=== PATIENT | female | born 1950 | race Hispanic/Latino ===

== ENCOUNTER 2018-01-22 12:18 | Emergency (ER) | payer MEDICARE, MEDICAID ==
[2018-01-22 12:20] VITALS: BMI 25.2
[2018-01-22 12:28] VITALS: RESP 18; TEMP 97.8
--- NOTE | 2018-01-22 13:58 | CT ---
PROCEDURE: CT HEAD WITHOUT CONTRAST. HISTORY: head injury COMPARISON: 12/20/2016 TECHNIQUE: Axial computed tomography images were obtained through the head/brain without intravenous contrast. Radiation dose: Total exam DLP = 852.60 mGy-cm. This CT exam was performed using one or more of the following dose reduction techniques: Automated exposure control, adjustment of the mA and/or kV according to patient size, and/or use of iterative reconstruction technique. FINDINGS: HEMORRHAGE: No intracranial hemorrhage. BRAIN: No mass effect or edema. No atrophy or chronic microvascular ischemic changes. VENTRICLES: Unremarkable. No hydrocephalus. CALVARIUM: Unremarkable. PARANASAL SINUSES: Unremarkable as visualized. No significant inflammatory changes. MASTOID AIR CELLS: Unremarkable as visualized. No inflammatory changes. OTHER FINDINGS: None. IMPRESSION: No acute intracranial abnormalities. No significant findings to account for the clinical presentation.
--- NOTE | 2018-01-22 14:02 | CT ---
PROCEDURE: CT MAXILLOFACIAL BONES WITHOUT CONTRAST HISTORY: facial pain s/p trauma COMPARISON: None TECHNIQUE: Contiguous axial CT images of the maxillofacial bones were obtained. Coronal and sagittal reformats were generated. Radiation dose: Total exam DLP = 850.48 mGy-cm. This CT exam was performed using one or more of the following dose reduction techniques: Automated exposure control, adjustment of the mA and/or kV according to patient size, and/or use of iterative reconstruction technique. FINDINGS: NASAL BONES: Unremarkable. ORBITS: Unremarkable. PARANASAL SINUSES/ MASTOIDS: Clear. MAXILLA: Unremarkable. MANDIBLE/ TEMPOROMANDIBULAR JOINTS: Unremarkable. SKULL BASE: Unremarkable. TEMPORAL BONES: Middle ears and mastoid grossly unremarkable. OTHER FINDINGS: Soft tissue swelling above the lip and to the right of the midline. IMPRESSION: Facial soft tissue swelling, otherwise Unremarkable non contrast enhanced CT of the maxillofacial bones.
--- NOTE | 2018-01-22 14:02 | RAD ---
PROCEDURE: Right Hand Radiographs. HISTORY: hand pain COMPARISON: None. FINDINGS: BONES: Normal. No fracture. JOINTS: Normal. No osteoarthritic changes. SOFT TISSUES: Normal. OTHER FINDINGS: None. IMPRESSION: No acute findings related to/accounting for the clinical presentation.
--- NOTE | 2018-01-22 14:13 | ED PDOC ---
Arrival/HPI - General Chief Complaint: Trauma Time Seen by Provider: 01/22/18 12:45 Historian: Patient - History of Present Illness Narrative History of Present Illness (Text): 01/22/18 14:02 67yo female with PMhx of hypertension who present with facial pain and right hand pain s/p trauma this morning. states she tripped over uneven side walk, while taking a walk this morning. Notes that she hit the right side of her face on the floor and injured her hand. She denies hitting her head. Denies LOC, nausea, focal weakness, back pain, any other complaint. 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 - Renal Hx Renal Disorder: No - Endocrine/Metabolic Hx Endocrine Disorders: No - Hematological/Oncological Hx Blood Transfusions: No - Integumentary Hx Dermatological Disorder: No - Musculoskeletal/Rheumatological Hx Musculoskeletal Disorders: Yes - Gastrointestinal Hx Gastrointestinal Disorders: No - Genitourinary/Gynecological Hx Genitourinary Disorders: No - Psychiatric Hx Emotional Abuse: No Hx Physical Abuse: No Hx Substance Use: No - Surgical History Hx Cataract Extraction: Yes Hx Gastric Bypass Surgery: Yes (Lap band) Hx Orthopedic Surgery: Yes (L ankle surgery) Hx Tubal Ligation: Yes Other/Comment: Neck surgery - Anesthesia Hx Anesthesia: Yes Hx Anesthesia Reactions: No Hx Malignant Hyperthermia: No - Suicidal Assessment Feels Threatened In Home Enviroment: No Family/Social History - Physician Review Nursing Documentation Reviewed: Yes Family/Social History: Unknown Family HX Smoking Status: Former Smoker Hx Alcohol Use: No Hx Substance Use: No Hx Substance Use Treatment: No Allergies/Home Meds Allergies/Adverse Reactions: Allergies No Known Allergies Allergy (Verified 01/22/18 12:28) Home Medications: Home Meds Medication Instructions Recorded Confirmed Atorvastatin Calcium [Lipitor] 20 mg PO DAILY 07/02/13 01/22/18 Review of Systems - Physician Review All systems were reviewed & negative as marked: Yes - Review of Systems Constitutional: Normal Eyes: Normal ENT: Normal Respiratory: Normal Cardiovascular: Normal Gastrointestinal: Normal Genitourinary Female: Normal Musculoskeletal: Arthralgias (Right hand and facial pain) Skin: Normal Neurological: Normal Endocrine: Normal Hemo/Lymphatic: Normal Psychiatric: Normal Physical Exam Vital Signs Reviewed: Yes Vital Signs Temp Pulse Resp BP Pulse Ox 01/22/18 14:40 64 18 149/83 99 01/22/18 12:24 97.8 F 72 18 168/64 H 100 Temperature: Afebrile Blood Pressure: Normal Pulse: Regular Respiratory Rate: Normal Appearance: Positive for: Well-Appearing, Non-Toxic, Comfortable Pain Distress: None Mental Status: Positive for: Alert and Oriented X 3 - Systems Exam Head: Present: Atraumatic, Normocephalic Pupils: Present: PERRL Extroacular Muscles: Present: EOMI, Other (Ecchymosis with mild over laying tenderness over right infra orbital area) Conjunctiva: Present: Normal Mouth: Present: Moist Mucous Membranes, Other (Superfical abrasion over the right sided rafat oral area. No active bleeding) Neck: Present: Normal Range of Motion Respiratory/Chest: Present: Clear to Auscultation, Good Air Exchange. No: Respiratory Distress, Accessory Muscle Use Cardiovascular: Present: Regular Rate and Rhythm, Normal S1, S2. No: Murmurs Abdomen: Present: Normal Bowel Sounds. No: Tenderness, Distention, Peritoneal Signs Back: Present: Normal Inspection Upper Extremity: Present: Normal ROM, NORMAL PULSES, Tenderness (Right hand), Neurovascularly Intact. No: Cyanosis, Edema, Swelling, Erythema Lower Extremity: Present: Normal Inspection. No: Edema Neurological: Present: GCS=15, CN II-XII Intact, Speech Normal Skin: Present: Warm, Dry, Normal Color. No: Rashes Psychiatric: Present: Alert, Oriented x 3, Normal Insight, Normal Concentration Medical Decision Making ED Course and Treatment: 01/22/18 19:58 PT was neurological intact and ambulatory in ED. Head CT/ Maxillofacial CT - Negative Right hand xray - Negative Abrasion cleaned with betadine and bacitracine applied. Marko wrap applied to hand. Result was DW the pt and she was DC home with ibuprofen. Referred to her PMD. Advised to apply ice to area. - RAD Interpretation Radiology Orders: 01/22/18 12:46 MAXILLOFACIAL W/O CONTRAST [CT] Stat 01/22/18 12:48 HEAD W/O CONTRAST [CT] Stat 01/22/18 12:49 HAND RIGHT 3 VIEWS [RAD] Stat - Medication Orders Current Medication Orders: Discontinued Medications Acetaminophen (Tylenol 325mg Tab) 650 mg PO STAT STA Stop: 01/22/18 12:52 Last Admin: 01/22/18 12:57 Dose: 650 mg MAR Pain/Vitals Document 01/22/18 12:57 GMD (Rec: 01/22/18 12:57 GMD [id number]) Presence of Pain Presence of Pain Yes Location Left, Right or Bilateral Right Pain Location Body Site Wrist Disposition/Present on Arrival - Present on Arrival Any Indicators Present on Arrival: No History of DVT/PE: No History of Uncontrolled Diabetes: No Urinary Catheter: No History of Decub. Ulcer: No History Surgical Site Infection Following: None - Disposition Have Diagnosis and Disposition been Completed?: Yes Diagnosis: Hand sprain, Facial contusion, Abrasion Disposition: HOME/ ROUTINE Disposition Time: 14:35 Patient Plan: Discharge Condition: STABLE Discharge Instructions (ExitCare): Contusion (DC), Hand Pain Additional Instructions: Follow up with your doctor/orthopedist Return to ED for any new or worsening symptoms Prescriptions: Ibuprofen [Motrin Tab] 600 mg PO Q6 #20 tab Referrals: Gina Carter MD [Staff Provider] - Follow up with primary Forms: [employer] (Paraguayan)
[2018-01-22 14:41] VITALS: BP 149/83; PULSE 64; O2SAT 99
== END 2018-01-22 14:45 | disposition home or self-care (01) ==
LOC: ED 12:18
DX: S00.83XA Contusion of other part of head, initial encounter (principal); S63.91XA Sprain of unspecified part of right wrist and hand, initial encounter; W01.0XXA Fall on same level from slipping, tripping and stumbling without subsequent striking against object, initial encounter; Y92.480 Sidewalk as the place of occurrence of the external cause

== ENCOUNTER 2018-11-06 15:14 | Observation (INO) | payer MEDICAID, MEDICARE ==
[2018-11-06 15:21] VITALS: BMI 25.8
[2018-11-06] MEDS ORDERED: Sodium Chloride 0.9% 1,000 ML IV STA (15:59)
--- NOTE | 2018-11-06 16:07 | ED PDOC ---
Arrival/HPI - General Chief Complaint: GI Problem Time Seen by Provider: 11/06/18 15:53 Historian: Patient - History of Present Illness Narrative History of Present Illness (Text): 11/06/18 16:04 68 year old female, whose past medical history includes hyperlipidemia and UTI's, who presents to the emergency department complaining of body aches, chills, and nausea x 3 days. Patient notes associated headaches. Patient denies any fever, chest pain, shortness of breath, diarrhea, urinary symptoms, back pain, neck pain, dizziness, or any other complaints. 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 - Renal Hx Renal Disorder: No - Endocrine/Metabolic Hx Endocrine Disorders: No - Hematological/Oncological Hx Blood Transfusions: No - Integumentary Hx Dermatological Disorder: No - Musculoskeletal/Rheumatological Hx Musculoskeletal Disorders: Yes - Gastrointestinal Hx Gastrointestinal Disorders: No - Genitourinary/Gynecological Hx Genitourinary Disorders: No - Psychiatric Hx Emotional Abuse: No Hx Physical Abuse: No Hx Substance Use: No - Surgical History Hx Cataract Extraction: Yes Hx Gastric Bypass Surgery: Yes (Lap band) Hx Orthopedic Surgery: Yes (L ankle surgery) Hx Tubal Ligation: Yes Other/Comment: Neck surgery - Anesthesia Hx Anesthesia: Yes Hx Anesthesia Reactions: No Hx Malignant Hyperthermia: No - Suicidal Assessment Feels Threatened In Home Enviroment: No Family/Social History - Physician Review Nursing Documentation Reviewed: Yes Family/Social History: Unknown Family HX Smoking Status: Former Smoker Hx Alcohol Use: No Hx Substance Use: No Hx Substance Use Treatment: No Allergies/Home Meds Allergies/Adverse Reactions: Allergies No Known Allergies Allergy (Verified 01/22/18 12:28) Home Medications: Home Meds Medication Instructions Recorded Confirmed RX: Atorvastatin Calcium [Lipitor] 20 mg PO DAILY 07/02/13 01/22/18 Review of Systems - Physician Review All systems were reviewed & negative as marked: Yes - Review of Systems Constitutional: Normal Eyes: Normal ENT: Normal Respiratory: Normal. absent: SOB, Cough Cardiovascular: Normal. absent: Chest Pain Gastrointestinal: Nausea, Vomiting. absent: Abdominal Pain Genitourinary Female: Normal. absent: Frequency, Hematuria Musculoskeletal: Other (body aches). absent: Back Pain, Neck Pain Skin: Normal. absent: Rash Neurological: Headache Endocrine: Normal Hemo/Lymphatic: Normal Psychiatric: Normal Physical Exam Vital Signs Reviewed: Yes Vital Signs Temp Pulse Resp BP Pulse Ox 11/06/18 15:20 99.3 F 87 18 128/71 99 Temperature: Afebrile Blood Pressure: Normal Pulse: Regular Respiratory Rate: Normal Appearance: Positive for: Well-Appearing, Non-Toxic, Comfortable Pain Distress: None Mental Status: Positive for: Alert and Oriented X 3 - Systems Exam Head: Present: Atraumatic, Normocephalic Pupils: Present: PERRL Extroacular Muscles: Present: EOMI Conjunctiva: Present: Normal Mouth: Present: Moist Mucous Membranes Neck: Present: Normal Range of Motion Respiratory/Chest: Present: Clear to Auscultation, Good Air Exchange. No: Respiratory Distress, Accessory Muscle Use Cardiovascular: Present: Regular Rate and Rhythm, Normal S1, S2. No: Murmurs Abdomen: No: Tenderness, Distention, Peritoneal Signs Back: Present: Normal Inspection Upper Extremity: Present: Normal Inspection. No: Cyanosis, Edema Lower Extremity: Present: Normal Inspection. No: Edema Neurological: Present: GCS=15, CN II-XII Intact, Speech Normal Skin: Present: Warm, Dry, Normal Color. No: Rashes Psychiatric: Present: Alert, Oriented x 3, Normal Insight, Anxious Medical Decision Making ED Course and Treatment: 11/06/18 16:08 Impression: 68 year old female presents to the Emergency department complaining of body aches, chills, and nausea x 3 days. ro abdominal infeluna, pneumonia uti Plan: -- Labs -- Tylenol -- Zofran -- Sodium Chloride -- Rapid Flu -- UA -- Reassess and disposition Progress Notes: 11/06/18 16:27 ekg nsr [address] tave changes nomral interval.s 11/06/18 19:12 labs show elevated lfts ?choledolithiasis. case discussed with dr carey, accepts. seen by [facility]. - Medication Orders Current Medication Orders: Sodium Chloride (Sodium Chloride 0.9%) 1,000 mls @ 1,000 mls/hr IV .Q1H STA Stop: 11/06/18 16:58 Discontinued Medications Acetaminophen (Tylenol 325mg Tab) 975 mg PO STAT STA Stop: 11/06/18 16:00 Ondansetron HCl (Zofran Inj) 4 mg IVP STAT STA Stop: 11/06/18 16:00 - Scribe Statement The provider has reviewed the documentation as recorded by the Scribtiffany Junior All medical record entries made by the Edelmiraibtiffany were at my direction and personally dictated by me. I have reviewed the chart and agree that the record accurately reflects my personal performance of the history, physical exam, medical decision making, and the department course for this patient. I have also personally directed, reviewed, and agree with the discharge instructions and disposition. Disposition/Present on Arrival - Present on Arrival Any Indicators Present on Arrival: No History of DVT/PE: No History of Uncontrolled Diabetes: No Urinary Catheter: No History of Decub. Ulcer: No History Surgical Site Infection Following: None - Disposition Have Diagnosis and Disposition been Completed?: Yes Diagnosis: Choledocholithiasis, Abnormal LFTs Disposition: HOSPITALIZED Disposition Time: 18:30 Condition: STABLE
[2018-11-06 16:42] LABS: BASO # 0.01 K/mm3 (0.0-2.0); BASO % 0.1 % (0.0-3.0); EOS # 0.1 (0.0-0.7); EOS % 0.9 % (1.5-5.0); GRAN # 7.14 (1.4-6.5); GRAN % 95.2 % (50.0-68.0); HEMOGLOBIN 13.8 g/dL (12.0-16.0); LYMPH # 0.1 (1.2-3.4); LYMPH % 1.5 % (22.0-35.0); MEAN CELL VOLUME 91.9 fl (80.0-105.0); MEAN CORPUSCULAR HEMOGLOBIN 30.9 pg (25.0-35.0); MEAN CORPUSCULAR HGB CONC 33.6 g/dl (31.0-37.0); MEAN PLATELET VOLUME 9.9 fl (7.0-11.0); MONO # 0.2 (0.1-0.6); MONO % 2.3 % (1.0-6.0); PLATELET COUNT 162 10^3/uL (120.0-450.0); RBC 4.47 10^6/uL (3.5-6.1); RED CELL DISTRIBUTION WIDTH 14.4 % (11.5-14.5); WHITE BLOOD COUNT 7.5 10^3/uL (4.5-11.0)
[2018-11-06 16:51] LABS: ALB/GLOB RATIO 1.1 (1.1-1.8); ALBUMIN 3.5 g/dL (3.0-4.8); ALT/SGPT 283 U/L (7-56); AST/SGOT 309 U/L (14-36); BLOOD UREA NITROGEN 17 mg/dL (7-21); CALCIUM 8.7 mg/dL (8.4-10.5); GFR NON-AFRICAN AMERICAN > 60; INR 1.17; LIPASE 220 U/L (23-300); PARTIAL THROMBOPLASTIN TIME 26.7 Seconds (25.1-36.5); PROTHROMBIN TIME 13.4 SECONDS (9.4-12.5)
[2018-11-06 17:03] LABS: TROPONIN I < 0.01 ng/mL
[2018-11-06 17:12] LABS: BAND 3 % (0-2); EOSINOPHIL 3 % (0.0-3.0); LYMPHOCYTE 1 % (22.0-35.0); MONOCYTE 1 % (1.0-6.0); NEUTROPHIL 92 % (50.0-70.0); PLATELET ESTIMATE NORMAL (NORMAL)
--- NOTE | 2018-11-06 17:39 | US ---
Date of service: 11/06/2018 HISTORY: elevated lfts COMPARISON: 01/23/2017, abdominal ultrasound. 01/23/2017 CT abdomen and pelvis TECHNIQUE: Sonographic evaluation of the abdomen. FINDINGS: LIVER: Measures 14.0 cm. Hepatopedal blood flow. Fatty infiltration manifest ultrasonographically as increased echogenicity of the liver parenchyma. No mass. No intrahepatic bile duct dilatation. GALLBLADDER: Cholelithiasis. Negative study for gallbladder wall thickening, pericholecystic fluid, sonographic Chavez's sign. COMMON BILE DUCT: Measures 4.1 mm. No stones. No dilatation. PANCREAS: Unremarkable as visualized. No mass. No ductal dilatation. RIGHT KIDNEY: Measures 5 x 10.9cm. Normal echogenicity. No calculus, mass, or hydronephrosis. LEFT KIDNEY: Measures 4.5 x 9.1cm. Normal echogenicity. No calculus, mass, or hydronephrosis. SPLEEN: Normal in size and contour. No mass. AORTA: No aneurysmal dilatation. IVC: Unremarkable. OTHER FINDINGS: None. IMPRESSION: Cholelithiasis. No sonographic evidence of acute cholecystitis.
--- NOTE | 2018-11-06 18:50 | CP.PCM.CON ---
History of Present Illness - History of Present Illness History of Present Illness: Surgery Consult note- Dr. 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 Patient states she has been feeling run down and was not getting better so elected to come to the ER for further workup. States recent sick contact with family friend who had bacteremia in hospital last week. Denies recent foreign travel. Denies vomiting, abdominal pain, diarrhea, changes in urinary habits. During work up patient was found to have transaminitis and subsequently underwent abdominal US. Of note, patient was admitted 01/2017 with similar lab findings, and Ultrasound with no significant interval changes. PMH: Stated above PSH: c-spine surgery, b/l cataracts, ORIF of left ankle, tubal ligation, Lap Band surgery w/ 100lbs weight loss since surgery ALL: NKDA SocialHx: former smoker- quit 15 years ago, smoked 2ppd for > 40 years, social etoh, denies recreational drug use FH: non-contributory Review of Systems - Review of Systems All systems: reviewed and no additional remarkable complaints except - Constitutional Constitutional: As Per HPI Past Patient History - Infectious Disease Hx of Infectious Diseases: None - Tetanus Immunizations Tetanus Immunization: Unknown - Past Social History Smoking Status: Former Smoker - CARDIAC Hx Pacemaker: No Other/Comment: Carotid artery stenosis - PULMONARY Hx Respiratory Disorders: No - NEUROLOGICAL Hx Paralysis: No - HEENT Hx HEENT Problems: Yes 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 - RENAL Hx Chronic Kidney Disease: No - ENDOCRINE/METABOLIC Hx Endocrine Disorders: No - HEMATOLOGICAL/ONCOLOGICAL Hx Blood Transfusions: No - INTEGUMENTARY Hx Dermatological Problems: No - MUSCULOSKELETAL/RHEUMATOLOGICAL Hx Musculoskeletal Disorders: Yes - GASTROINTESTINAL Hx Gastrointestinal Disorders: No - GENITOURINARY/GYNECOLOGICAL Hx Genitourinary Disorders: No - PSYCHIATRIC Hx Emotional Abuse: No Hx Physical Abuse: No Hx Substance Use: No - SURGICAL HISTORY Hx Cataract Extraction: Yes Hx Gastric Bypass Surgery: Yes (Lap band) Hx Orthopedic Surgery: Yes (L ankle surgery) Hx Tubal Ligation: Yes Other/Comment: Neck surgery - ANESTHESIA Hx Anesthesia: Yes Hx Anesthesia Reactions: No Hx Malignant Hyperthermia: No Meds Allergies/Adverse Reactions: Allergies Allergy/AdvReac Type Severity Reaction Status Date / Time No Known Allergies Allergy Verified 01/22/18 12:28 Physical Exam - Constitutional Appears: Non-toxic, No Acute Distress - Head Exam Head Exam: ATRAUMATIC - Eye Exam Eye Exam: EOMI. absent: Scleral icterus - ENT Exam ENT Exam: Mucous Membranes Moist - Respiratory Exam Respiratory Exam: NORMAL BREATHING PATTERN. absent: Accessory Muscle Use, Respiratory Distress - Cardiovascular Exam Cardiovascular Exam: REGULAR RHYTHM, +S1, +S2. absent: Bradycardia, Tachycardia - GI/Abdominal Exam GI & Abdominal Exam: Soft. absent: Diminished Bowel Sounds, Distended, Firm, Guarding, Hernia, Mass, Rebound, Rigid, Tenderness - Neurological Exam Neurological exam: Alert, Oriented x3 - Psychiatric Exam Psychiatric exam: Normal Affect - Skin Skin Exam: Intact, Warm Results - Vital Signs Recent Vital Signs: Last Vital Signs Temp 99.3 F 11/06/18 15:20 Pulse 81 11/06/18 17:14 Resp 18 11/06/18 17:14 BP 125/70 11/06/18 17:14 Pulse Ox 99 11/06/18 17:14 - Labs Result Diagrams: 11/06/18 16:30 11/06/18 16:30 Labs: Laboratory Results - last 24 hr 11/06/18 11/06/18 11/06/18 16:30 16:30 16:30 WBC 7.5 RBC 4.47 Hgb 13.8 Hct 41.1 MCV 91.9 MCH 30.9 MCHC 33.6 RDW 14.4 Plt Count 162 MPV 9.9 Gran % 95.2 H Lymph % (Auto) 1.5 L Trimble % (Auto) 2.3 Eos % (Auto) 0.9 L Baso % (Auto) 0.1 Gran # 7.14 H Lymph # (Auto) 0.1 L Trimble # (Auto) 0.2 Eos # (Auto) 0.1 Baso # (Auto) 0.01 Neutrophils % (Manual) 92 H Band Neutrophils % 3 H Lymphocytes % (Manual) 1 L Monocytes % (Manual) 1 Eosinophils % (Manual) 3 Platelet Evaluation Normal PT 13.4 H INR 1.17 APTT 26.7 Sodium 136 Potassium 4.0 Chloride 106 Carbon Dioxide 26 Anion Gap 8 L BUN 17 Creatinine 0.8 Est GFR ( Amer) > 60 Est GFR (Non-Af Amer) > 60 Random Glucose 106 Calcium 8.7 Total Bilirubin 1.9 H Direct Bilirubin AST 309 H ALT 283 H Alkaline Phosphatase 193 H Lactate Dehydrogenase 988 H Total Creatine Kinase 75 Troponin I < 0.01 D Total Protein 6.6 Albumin 3.5 Globulin 3.2 Albumin/Globulin Ratio 1.1 Lipase 220 11/06/18 17:00 WBC RBC Hgb Hct MCV MCH MCHC RDW Plt Count MPV Gran % Lymph % (Auto) Trimble % (Auto) Eos % (Auto) Baso % (Auto) Gran # Lymph # (Auto) Trimble # (Auto) Eos # (Auto) Baso # (Auto) Neutrophils % (Manual) Band Neutrophils % Lymphocytes % (Manual) Monocytes % (Manual) Eosinophils % (Manual) Platelet Evaluation PT INR APTT Sodium Potassium Chloride Carbon Dioxide Anion Gap BUN Creatinine Est GFR ( Amer) Est GFR (Non-Af Amer) Random Glucose Calcium Total Bilirubin Direct Bilirubin 1.4 H AST ALT Alkaline Phosphatase Lactate Dehydrogenase Total Creatine Kinase Troponin I Total Protein Albumin Globulin Albumin/Globulin Ratio Lipase Assessment & Plan - Assessment and Plan (Free Text) Assessment: 68F w/ transaminitis r/o cholecystitis vs choledocolithiasis Plan: similar interval imaging and lab findings from 01/2017, asymptomatic chol elithiasis - NPO at MI - pain control PRN - recommend MRCP - repeat labs in AM - serial abd exams - no acute surgical intervention at this time - further [facility]
[2018-11-06] MEDS ORDERED: Morphine 2 mg/ml ISec IVP PRN (20:07)
[2018-11-06] MEDS ORDERED: Sodium Chloride 0.45% 1,000 ML IV SCH (20:15)
[2018-11-06 21:38] LABS: URINE BILIRUBIN LARGE (NEGATIVE); URINE BLOOD NEGATIVE (NEGATIVE); URINE GLUCOSE (UA) NEGATIVE (NEGATIVE); URINE LEUKOCYTE ESTERASE TRACE Leu/uL (NEGATIVE); URINE PROTEIN 30 mg/dL (<30 mg/dL); URINE UROBILINOGEN >=8.0 E.U./dL (<1 E.U./dL)
[2018-11-06 21:39] LABS: URINE APPEARANCE SLIGHT-CLOUDY (CLEAR); URINE COLOR DARK YELLOW (YELLOW)
[2018-11-06 21:56] LABS: URINE RBC NEGATIVE /hpf (0-2)
[2018-11-06 21:57] LABS: URINE BACTERIA TRACE /hpf; URINE HYALINE CAST 0 - 2 /hpf
[2018-11-06 23:03] VITALS: O2SAT 98
--- NOTE | 2018-11-07 03:03 | HP ---
DATE OF EXAM: 11/06/2018 HISTORY OF PRESENT ILLNESS: I have known Iris for years. She is now coming to the emergency room, not feeling well. She presents with body aches, chills and nausea for 3 days. She is a 68-year-old white female who I have known for many years with past medical history of high cholesterol, UTI, and optic neuritis, who presents with headaches, abdominal pains on and off, nausea x3 days. She has carotid artery stenosis. 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 She has autoimmune optic neuritis. She takes prednisone every day for that. She had cataract surgery, lap band surgery where she lost 100 pounds, left ankle orthopedic surgery, tubal ligation, neck surgery cervical spine. FAMILY HISTORY: Unknown family history. SOCIAL HISTORY: Former smoker. No alcohol. No drugs. ALLERGIES: NO KNOWN DRUG ALLERGIES. MEDICATIONS: She is on prednisone and Lipitor. REVIEW OF SYSTEMS: No acute vision or hearing changes. No respiratory changes. No shortness of breath or cough. No chest pain or palpitations. She is nauseous. She is vomiting. Very little abdominal pain, some right upper quadrant ache but nothing severe. No problems urinating. Generalized body aches. No leg issues. Skin, what she knows, is intact. No rashes. She did have a headache. Not anxious, not nervous. PHYSICAL EXAMINATION: VITAL SIGNS: She has a 99.3 temperature, 87 pulse, 18 respiratory rate, 128/71 blood pressure, 99% O2 sat on room air. GENERAL: At this time, she is comfortable in bed talking to me, well appearing, nontoxic, alert and oriented x3. HEENT: Head is atraumatic, normocephalic. Extraocular muscles intact. Pupils react to light and accommodation. Throat is moist. NECK: Supple. HEART: Regular rate. Normal S1, S2. LUNGS: Decreased breath sounds, clear to auscultation bilaterally. ABDOMEN: Soft, maybe mild right upper quadrant discomfort, but no tenderness. No guarding, no rebound, no CVA tenderness. EXTREMITIES: No edema bilaterally. She moves all four extremities well. LYMPHS: Thyroid midline. No palpable lymphadenopathy. NEUROLOGIC: Alert and oriented x3. LABORATORY DATA: She had multiple labs done and tests done. She has a negative flu. Sodium 136, potassium 4, BUN 70, creatinine 0.8, GFR greater than 60, sugar is 106, calcium is 8.7. Total bili is 1.9, high. Direct bili is 1.4, high. AST is 309, high; ALT is 283, high; alkaline phosphatase 193, high. Lactate dehydrogenase 988, high. Total creatine kinase 75. Troponin I is less than 0.01. Total protein 6.6, albumin is 2.5, globulin 3.2, lipase is 220. INR is 1.17. She has a 7.5 white count, 13.8 hemoglobin, 41.1 hematocrit with 162 platelets. She had an ultrasound of the abdomen and pelvis. She has cholelithiasis. No evidence of acute cholecystitis. possible she might need an ERCP, she is being put in for gallstones, elevated liver enzymes. She will be on IV fluids and Zofran. She will be n.p.o., morphine for pain. Surgery and GI consulted. Jeffrey Jimenez DO MTDJose Miguel
[2018-11-07 04:36] VITALS: RESP 18
[2018-11-07 07:23] LABS: EOS # 0.2 (0.0-0.7); GRAN # 4.71 (1.4-6.5); GRAN % 85.5 % (50.0-68.0); HEMOGLOBIN 12.5 g/dL (12.0-16.0); LYMPH # 0.4 (1.2-3.4); LYMPH % 6.9 % (22.0-35.0); MEAN CELL VOLUME 92.1 fl (80.0-105.0); MEAN CORPUSCULAR HGB CONC 32.6 g/dl (31.0-37.0); MEAN PLATELET VOLUME 9.5 fl (7.0-11.0); MONO # 0.2 (0.1-0.6); MONO % 3.6 % (1.0-6.0); RBC 4.16 10^6/uL (3.5-6.1); RED CELL DISTRIBUTION WIDTH 14.5 % (11.5-14.5); WHITE BLOOD COUNT 5.5 10^3/uL (4.5-11.0)
[2018-11-07 07:38] LABS: ALT/SGPT 196 U/L (7-56); AST/SGOT 133 U/L (14-36); BLOOD UREA NITROGEN 15 mg/dL (7-21); CALCIUM 8.3 mg/dL (8.4-10.5); GFR NON-AFRICAN AMERICAN > 60
[2018-11-07 08:12] VITALS: BP 111/49; PULSE 66; TEMP 98.5
--- NOTE | 2018-11-07 08:51 | RAD ---
Date of service: 11/06/2018 HISTORY: abd pain COMPARISON: 12/20/2016 FINDINGS: LUNGS: No active pulmonary disease. PLEURA: No significant pleural effusion identified, no pneumothorax apparent. CARDIOVASCULAR: No aortic atherosclerotic calcification present. Normal cardiac size. No pulmonary vascular congestion. OSSEOUS STRUCTURES: No significant abnormalities. VISUALIZED UPPER ABDOMEN: Normal. OTHER FINDINGS: None. IMPRESSION: No active disease.
--- NOTE | 2018-11-07 09:29 | MRI ---
Date of service: 11/07/2018 PROCEDURE: Magnetic Resonance Cholangiopancreatography HISTORY: COMPARISON: None available. TECHNIQUE: Multiplanar, multisequence MR images of the abdomen were obtained, including heavily T2 weighted MRCP images of the biliary system. Rotating maximum intensity projection images of the biliary system were generated. FINDINGS: MRCP: The common bile duct is of a normal caliber. No evidence of choledocholithiasis. No intrahepatic biliary ductal dilatation. LIVER: Fatty infiltration of the liver GALLBLADDER: Distended gallbladder with 2.2 cm stone in the gallbladder fundus. There is no wall thickening or evidence of cholecystitis SPLEEN: Unremarkable. PANCREAS: Unremarkable. ADRENALS: Unremarkable. KIDNEYS: Unremarkable. AORTA: No aneurysm. ASCITES: None. OTHER FINDINGS: None. IMPRESSION: Distended gallbladder with 2.2 cm gallstone. No evidence of common duct stone
--- NOTE | 2018-11-07 09:38 | CARD ---
APPROVED REPORT Date of service: 11/06/2018 EKG Measurement Heart [id number] ID [id number] <Conclusion> Normal sinus rhythm Low voltage Left axis deviation/LAHB NSSTW changes Prolonged QTc
--- NOTE | 2018-11-07 09:42 | CP.PCM.PN ---
Subjective - Date & Time of Evaluation Date of Evaluation: 11/07/18 Time of Evaluation: 07:00 - Subjective Subjective: Surgery progress note for Dr. Rojas Pt seen and examined at bedside this AM. No adverse events overnight. Patient states she still has intermittent nausea but no abdominal pain. Objective - Vital Signs/Intake and Output Vital Signs (last 24 hours): Temp Pulse Resp BP Pulse Ox 98.5 F 66 18 111/49 L 98 11/07/18 07:00 11/07/18 07:00 11/07/18 07:00 11/07/18 07:00 11/07/18 07:00 - Medications Medications: Current Medications Aspirin (Ecotrin) 81 mg PO DAILY [facility] Atorvastatin Calcium (Lipitor) 20 mg PO DAILY [facility] Sodium Chloride (Sodium Chloride 0.45%) 1,000 mls @ 60 mls/hr IV .[id number] [facility] Last Admin: 11/06/18 21:49 Dose: 60 mls/hr Morphine Sulfate (Morphine) 2 mg IVP Q4H PRN PRN Reason: Pain, moderate (4-7) Last Admin: 11/07/18 01:07 Dose: 2 mg Ondansetron HCl (Zofran Inj) 4 mg IVP Q6H PRN PRN Reason: Nausea/Vomiting Prednisone (Prednisone Tab) 5 mg PO DAILY [facility] - Labs Labs: 11/07/18 06:30 11/07/18 06:30 PT 13.4 SECONDS (9.4-12.5) H 11/06/18 16:30 INR 1.17 11/06/18 16:30 APTT 26.7 Seconds (25.1-36.5) 11/06/18 16:30 - Constitutional Appears: Well, Non-toxic, No Acute Distress - Head Exam Head Exam: ATRAUMATIC, NORMOCEPHALIC - Eye Exam Eye Exam: Normal appearance. absent: Conjunctival injection, Scleral icterus - ENT Exam ENT Exam: Mucous Membranes Moist, Normal Oropharynx - Respiratory Exam Respiratory Exam: NORMAL BREATHING PATTERN. absent: Accessory Muscle Use, Respiratory Distress - Cardiovascular Exam Cardiovascular Exam: RRR - GI/Abdominal Exam GI & Abdominal Exam: Soft. absent: Distended, Tenderness - Extremities Exam Extremities Exam: absent: Calf Tenderness, Pedal Edema, Tenderness - Neurological Exam Neurological Exam: Alert, Awake, Oriented x3 - Psychiatric Exam Psychiatric exam: Normal Affect, Normal Mood - Skin Skin Exam: Dry, Normal Color, Warm Assessment and Plan - Assessment and Plan (Free Text) Assessment: 68F with transaminitis and cholelithiasis Plan: MRCP negative for any choledocholithiasis May start a heart healthy diet Trend CBC/CMP while in the hospital--LFT's down trending today Surgical options discussed with patient, but she prefers to defer surgery at this time if it is not urgent. No signs of obstruction on MRCP, labs downt trending, and no clinical or radiographic signs of cholecystitis at this time. Therefore no surgical intervention planned at this time. Patient is clear for discharge from a surgical standpoint. May follow up with Dr. Rojas in his of [facility] for any further symptoms or concerns Discussed with DR. Bob Andino, PGY2
--- NOTE | 2018-11-07 12:31 | CP.PCM.CON ---
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 States that she has been feeling generalized weakness and fatigue. States that she has a sick contact, but denied recent travel, weight loss, vomiting, abdominal pain, diarrhea, melena, hematochezia, changes in urinary habits. In the ED she was found to have elevated liver tests and Abd US revealed cholelithiasis and normal CBD. GI consulted for further evaluation. 12 point ROS negative other than states above MHx: See above SurgHx: c-spine surgery, b/l cataracts, ORIF of left ankle, tubal ligation, Lap Band surgery w/ 100lbs weight loss since surgery Meds: Reviewed in chart FamHx: Denied GI probs SocialHx: former smoker- quit 15 years ago, smoked 2ppd for > 40 years, social etoh, denies recreational drug use All: NKDA Past Patient History - Infectious Disease Hx of Infectious Diseases: None - Tetanus Immunizations Tetanus Immunization: Unknown - Past Social History Smoking Status: Former Smoker - CARDIAC Hx Hypercholesterolemia: Yes - PULMONARY Hx Respiratory Disorders: No - NEUROLOGICAL Hx Paralysis: No - HEENT Hx HEENT Problems: Yes 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 - RENAL Hx Chronic Kidney Disease: No - ENDOCRINE/METABOLIC Hx Endocrine Disorders: No - HEMATOLOGICAL/ONCOLOGICAL Hx Blood Transfusions: No - INTEGUMENTARY Hx Dermatological Problems: No - MUSCULOSKELETAL/RHEUMATOLOGICAL Hx Falls: Yes - GASTROINTESTINAL Hx Gastrointestinal Disorders: No - GENITOURINARY/GYNECOLOGICAL Hx Genitourinary Disorders: No - PSYCHIATRIC Hx Emotional Abuse: No Hx Physical Abuse: No Hx Substance Use: No - SURGICAL HISTORY Hx Cataract Extraction: Yes Hx Gastric Bypass Surgery: Yes (Lap band) Hx Orthopedic Surgery: Yes (L ankle surgery) Hx Tubal Ligation: Yes Other/Comment: Neck surgery - ANESTHESIA Hx Anesthesia: Yes Hx Anesthesia Reactions: No Hx Malignant Hyperthermia: No Meds Allergies/Adverse Reactions: Allergies Allergy/AdvReac Type Severity Reaction Status Date / Time No Known Allergies Allergy Verified 01/22/18 12:28 - Medications Medications: Current Medications Aspirin (Ecotrin) 81 mg PO DAILY [facility] Last Admin: 11/07/18 09:44 Dose: Not Given Atorvastatin Calcium (Lipitor) 20 mg PO DAILY [facility] Last Admin: 11/07/18 09:33 Dose: Not Given Sodium Chloride (Sodium Chloride 0.45%) 1,000 mls @ 60 mls/hr IV .[id number] [facility] Last Admin: 11/06/18 21:49 Dose: 60 mls/hr Morphine Sulfate (Morphine) 2 mg IVP Q4H PRN PRN Reason: Pain, moderate (4-7) Last Admin: 11/07/18 01:07 Dose: 2 mg Ondansetron HCl (Zofran Inj) 4 mg IVP Q6H PRN PRN Reason: Nausea/Vomiting Prednisone (Prednisone Tab) 5 mg PO DAILY [facility] Last Admin: 11/07/18 09:33 Dose: 5 mg Physical Exam - Constitutional Appears: Well, No Acute Distress - Head Exam Head Exam: ATRAUMATIC, NORMAL INSPECTION - Eye Exam Eye Exam: EOMI. absent: Scleral icterus - ENT Exam ENT Exam: Mucous Membranes Moist. absent: Mucous Membranes Dry - Respiratory Exam Respiratory Exam: Clear to Auscultation Bilateral, NORMAL BREATHING PATTERN - Cardiovascular Exam Cardiovascular Exam: REGULAR RHYTHM, RRR - GI/Abdominal Exam GI & Abdominal Exam: Mass (small palapble mass in epigastrum consistent with pt lap band history), Normal Bowel Sounds, Soft, Tenderness. absent: Bruit, Diminished Bowel Sounds, Distended, Firm, Guarding, Hernia, Hyperactive Bowel Sounds, Hypoactive Bowel Sounds, Organomegaly, Pulsatile Mass, Rebound, Rigid - Rectal Exam Rectal Exam: Deferred - Extremities Exam Extremities exam: Positive for: normal inspection. Negative for: pedal edema - Neurological Exam Neurological exam: Alert, CN II-XII Intact - Psychiatric Exam Psychiatric exam: Normal Affect, Normal Mood - Skin Skin Exam: Normal Color, Warm Results - Vital Signs Recent Vital Signs: Last Vital Signs Temp 98.5 F 11/07/18 07:00 Pulse 66 11/07/18 07:00 Resp 18 11/07/18 07:00 BP 111/49 L 11/07/18 07:00 Pulse Ox 98 11/07/18 07:00 - Labs Result Diagrams: 11/07/18 06:30 11/07/18 06:30 Labs: Laboratory Results - last 24 hr 11/06/18 11/06/18 11/06/18 16:30 16:30 16:30 WBC 7.5 RBC 4.47 Hgb 13.8 Hct 41.1 MCV 91.9 MCH 30.9 MCHC 33.6 RDW 14.4 Plt Count 162 MPV 9.9 Gran % 95.2 H Lymph % (Auto) 1.5 L Tucker % (Auto) 2.3 Eos % (Auto) 0.9 L Baso % (Auto) 0.1 Gran # 7.14 H Lymph # (Auto) 0.1 L Tucker # (Auto) 0.2 Eos # (Auto) 0.1 Baso # (Auto) 0.01 Neutrophils % (Manual) 92 H Band Neutrophils % 3 H Lymphocytes % (Manual) 1 L Monocytes % (Manual) 1 Eosinophils % (Manual) 3 Platelet Evaluation Normal PT 13.4 H INR 1.17 APTT 26.7 Sodium 136 Potassium 4.0 Chloride 106 Carbon Dioxide 26 Anion Gap 8 L BUN 17 Creatinine 0.8 Est GFR ( Amer) > 60 Est GFR (Non-Af Amer) > 60 Random Glucose 106 Calcium 8.7 Total Bilirubin 1.9 H Direct Bilirubin AST 309 H ALT 283 H Alkaline Phosphatase 193 H Lactate Dehydrogenase 988 H Total Creatine Kinase 75 Troponin I < 0.01 D Total Protein 6.6 Albumin 3.5 Globulin 3.2 Albumin/Globulin Ratio 1.1 Lipase 220 Urine Color Urine Appearance Urine pH Ur Specific [place] Urine Protein Urine Glucose (UA) Urine Ketones Urine Blood Urine Nitrate Urine Bilirubin Urine Urobilinogen Ur Leukocyte Esterase Urine RBC Urine WBC Ur Epithelial Cells Urine Bacteria Hyaline Casts Urine Other Influenza Typ A,B (EIA) Blood Type Antibody Screen BBK History Checked 11/06/18 11/06/18 11/06/18 16:30 17:00 21:20 WBC RBC Hgb Hct MCV MCH MCHC RDW Plt Count MPV Gran % Lymph % (Auto) Tucker % (Auto) Eos % (Auto) Baso % (Auto) Gran # Lymph # (Auto) Tucker # (Auto) Eos # (Auto) Baso # (Auto) Neutrophils % (Manual) Band Neutrophils % Lymphocytes % (Manual) Monocytes % (Manual) Eosinophils % (Manual) Platelet Evaluation PT INR APTT Sodium Potassium Chloride Carbon Dioxide Anion Gap BUN Creatinine Est GFR ( Amer) Est GFR (Non-Af Amer) Random Glucose Calcium Total Bilirubin Direct Bilirubin 1.4 H AST ALT Alkaline Phosphatase Lactate Dehydrogenase Total Creatine Kinase Troponin I Total Protein Albumin Globulin Albumin/Globulin Ratio Lipase Urine Color Dark yellow Urine Appearance Slight-cloudy Urine pH 6.0 Ur Specific [place] 1.025 Urine Protein 30 H Urine Glucose (UA) Negative Urine Ketones 15 H Urine Blood Negative Urine Nitrate Negative Urine Bilirubin Large H Urine Urobilinogen >=8.0 Ur Leukocyte Esterase Trace H Urine RBC Negative Urine WBC 2 - 5 Ur Epithelial Cells 1 - 3 Urine Bacteria Trace Hyaline Casts 0 - 2 Urine Other Utrans Influenza Typ A,B (EIA) Negative for flu a/b Blood Type Antibody Screen BBK History Checked 11/07/18 11/07/18 11/07/18 06:30 06:30 06:30 WBC 5.5 D RBC 4.16 Hgb 12.5 Hct 38.3 MCV 92.1 MCH 30.0 MCHC 32.6 RDW 14.5 Plt Count 162 MPV 9.5 Gran % 85.5 H Lymph % (Auto) 6.9 L Tucker % (Auto) 3.6 Eos % (Auto) 4.0 Baso % (Auto) 0.0 Gran # 4.71 Lymph # (Auto) 0.4 L Tucker # (Auto) 0.2 Eos # (Auto) 0.2 Baso # (Auto) 0.00 Neutrophils % (Manual) Band Neutrophils % Lymphocytes % (Manual) Monocytes % (Manual) Eosinophils % (Manual) Platelet Evaluation PT INR APTT Sodium 139 Potassium 4.3 Chloride 109 H Carbon Dioxide 25 Anion Gap 9 L BUN 15 Creatinine 0.6 L Est GFR ( Amer) > 60 Est GFR (Non-Af Amer) > 60 Random Glucose 88 Calcium 8.3 L Total Bilirubin 1.2 Direct Bilirubin AST 133 H D ALT 196 H Alkaline Phosphatase 170 H Lactate Dehydrogenase Total Creatine Kinase Troponin I Total Protein 5.9 Albumin 3.0 Globulin 2.9 Albumin/Globulin Ratio 1.0 L Lipase Urine Color Urine Appearance Urine pH Ur Specific [place] Urine Protein Urine Glucose (UA) Urine Ketones Urine Blood Urine Nitrate Urine Bilirubin Urine Urobilinogen Ur Leukocyte Esterase Urine RBC Urine WBC Ur Epithelial Cells Urine Bacteria Hyaline Casts Urine Other Influenza Typ A,B (EIA) Blood Type A NEGATIVE Antibody Screen Negative BBK History Checked Patient has bt Assessment & Plan - Assessment and Plan (Free Text) Assessment: 68 WF with AI optic neuropathy (on 5mg prednisone daily for years), CAD, L c arotid stenosis 100%, HLD, cataracts, s/p lap band surgery approximately 10 years ago has lost 100lbs since surgery; presents to [facility] ED w/ headache, dizziness, nausea. Found to have abnormal liver tests. # Abnormal liver test: Increased transaminases, bilirubin. Suspect related to passed stone as no stone seen in biliary tree on MRCP nor US as CBD wnl. No fever, leukocytosis at this time to suggest cholangitis. Pt has similar presentation in 2017. Plan: - No plans for ERCP at this time - Diet per surgery - Would benefit from cholecystecomy at some point - Would f/u liver tests as outpatient Pt seen and examined with Dr. Almanza; please see attestation for further recs/changes. Perry Hong, PGY-4 <Samuel Almanza V - Last Filed: 11/07/18 22:04> Results - Vital Signs Recent Vital Signs: Last Vital Signs Temp 98.5 F 11/07/18 07:00 Pulse 66 11/07/18 07:00 Resp 18 11/07/18 07:00 BP 111/49 L 11/07/18 07:00 Pulse Ox 98 11/07/18 07:00 - Labs Result Diagrams: 11/07/18 06:30 11/07/18 06:30 Labs: Laboratory Results - last 24 hr 11/07/18 11/07/18 11/07/18 06:30 06:30 06:30 WBC 5.5 D RBC 4.16 Hgb 12.5 Hct 38.3 MCV 92.1 MCH 30.0 MCHC 32.6 RDW 14.5 Plt Count 162 MPV 9.5 Gran % 85.5 H Lymph % (Auto) 6.9 L Tucker % (Auto) 3.6 Eos % (Auto) 4.0 Baso % (Auto) 0.0 Gran # 4.71 Lymph # (Auto) 0.4 L Tucker # (Auto) 0.2 Eos # (Auto) 0.2 Baso # (Auto) 0.00 Sodium 139 Potassium 4.3 Chloride 109 H Carbon Dioxide 25 Anion Gap 9 L BUN 15 Creatinine 0.6 L Est GFR ( Amer) > 60 Est GFR (Non-Af Amer) > 60 Random Glucose 88 Calcium 8.3 L Total Bilirubin 1.2 AST 133 H D ALT 196 H Alkaline Phosphatase 170 H Total Protein 5.9 Albumin 3.0 Globulin 2.9 Albumin/Globulin Ratio 1.0 L Blood Type A NEGATIVE Antibody Screen Negative BBK History Checked Patient has bt Attending/Attestation - Attestation I have personally seen and examined this patient.: Yes I have fully participated in the care of the patient.: Yes I have reviewed all pertinent clinical information: Yes Notes (Text): This is an addendum to GI consult report dictated by the GI Fellow.The patient was seen and examined earlier. Medical records, lab studies, imagings were reviewed. Last 24 hours events reviewed. Agreed with the above treatment plan as outlined in GI Fellow 's notes with the addition of the following 11/07/18 22:04
--- NOTE | 2018-11-07 21:48 | DS ---
HISTORY OF PRESENT ILLNESS: She is doing much better clinically. She waiting for surgery and let me know she can be discharge or not during the surgery. At this time, the patient would rather not she is feeling a lot better. PHYSICAL EXAMINATION: VITAL SIGNS: She has temperature 98.5, pulse 66, blood pressure 111/49, respiratory rate 18 and 90% O2 sat on room air. HEENT: Head is atraumatic and normocephalic. HEART: Regular rate. LUNGS: Clear to auscultation. ABDOMEN: Soft and nontender. Positive bowel sounds. EXTREMITIES: No edema. LABORATORY DATA: She has a white count of 5.5, hemoglobin 12.5, hematocrit 30.3 and platelets 162. Sodium 139, potassium 4.3, BUN 15, creatinine 0.6, GFR is greater than 60, sugar is 88, calcium is 8.3, total bili is 1.2, AST is 133, ALT is 196, alk phos 170 . ASSESSMENT AND PLAN: I am hoping she will be discharge later today. Waiting for surgery to make depending on the MRCP, changes to observation discharge her later today and she will followup on the outpatient. Right abdominal pain, rule out gallbladder. Jeffrey Jimenez DO MTDD
== END 2018-11-07 16:54 | disposition home or self-care (01) ==
LOC: ED 15:14 → INTOOBSV 17:50 → ERH 17:50 → 5RSO 20:16
PROVIDERS: ADMIT Family Medicine; ATTEND Family Medicine
DX: K80.20 Calculus of gallbladder without cholecystitis without obstruction (principal); H46.8 Other optic neuritis; H54.40 Blindness, one eye, unspecified eye; I65.22 Occlusion and stenosis of left carotid artery; E78.00 Pure hypercholesterolemia, unspecified; I25.10 Atherosclerotic heart disease of native coronary artery without angina pectoris; E78.5 Hyperlipidemia, unspecified; R94.5 Abnormal results of liver function studies; Z87.891 Personal history of nicotine dependence; Z98.84 Bariatric surgery status
CPT/HCPCS: 36415; 71045; 74181; 76700; 80053; 81001; 82248; 82550; 83615; 83690; 84484; 85025; 85610; 85730; 86850; 86900; 87804; 93005; 96361; 96374; 99285; G0378; J2270; J2405; J7030

== ENCOUNTER 2018-11-21 16:34 | Emergency (ER) | payer MEDICARE ==
[2018-11-21 16:51] VITALS: BMI 27.4
--- NOTE | 2018-11-21 16:55 | ED PDOC ---
Arrival/HPI - General Chief Complaint: Cough, Cold, Congestion Time Seen by Provider: 11/21/18 16:46 Historian: Patient - History of Present Illness Time/Duration: Other (approximately 2 weeks) Symptom Onset: Gradual Symptom Course: Unchanged Severity Level: Mild Activities at Onset: Rest Associated Symptoms (Text): 11/21/18 16:53 Patient complains of approximately a two-week history of a cough productive of white sputum with chest congestion and nasal congestion with a right earache and URI symptoms. No fever or chills. No dyspnea. No wheezing. No chest pain. Today she coughed so hard that she had palpitations. She reports her heart rate was 140. She spoke with her PMD Dr. Jimenez who directed her to the emergency department. Recent diagnosis of cholelithiasis. She appears comfortable and in no distress. There is no abdominal pain nausea or vomiting. 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 - Renal Hx Renal Disorder: No - Endocrine/Metabolic Hx Endocrine Disorders: No - Hematological/Oncological Hx Blood Transfusions: No - Integumentary Hx Dermatological Disorder: No - Musculoskeletal/Rheumatological Hx Falls: Yes - Gastrointestinal Hx Gastrointestinal Disorders: No - Genitourinary/Gynecological Hx Genitourinary Disorders: No - Psychiatric Hx Emotional Abuse: No Hx Physical Abuse: No Hx Substance Use: No - Surgical History Hx Cataract Extraction: Yes Hx Gastric Bypass Surgery: Yes (Lap band) Hx Orthopedic Surgery: Yes (L ankle surgery) Hx Tubal Ligation: Yes Other/Comment: Neck surgery - Anesthesia Hx Anesthesia: Yes Hx Anesthesia Reactions: No Hx Malignant Hyperthermia: No - Suicidal Assessment Feels Threatened In Home Enviroment: No Family/Social History - Physician Review Nursing Documentation Reviewed: Yes Family/Social History: Unknown Family HX Smoking Status: Former Smoker (quit smoking 12 years ago) Hx Alcohol Use: No Hx Substance Use: No Hx Substance Use Treatment: No Allergies/Home Meds Allergies/Adverse Reactions: Allergies No Known Allergies Allergy (Verified 01/22/18 12:28) Home Medications: Home Meds Medication Instructions Recorded Confirmed Atorvastatin Calcium [Lipitor] 20 mg PO DAILY 07/02/13 01/22/18 Review of Systems - Physician Review All systems were reviewed & negative as marked: Yes - Review of Systems Constitutional: Fatigue. absent: Fevers ENT: Rhinorrhea, Sinus Congestion, Other (earache). absent: Sore Throat Respiratory: Cough, Sputum. absent: SOB, Wheezing Cardiovascular: Palpitations. absent: Chest Pain, Syncope Gastrointestinal: absent: Abdominal Pain, Diarrhea, Nausea, Vomiting, Anorexia Neurological: absent: Headache, Dizziness, Focal Weakness Physical Exam Temperature: Afebrile Blood Pressure: Normal Pulse: Regular Respiratory Rate: Normal Appearance: Positive for: Well-Appearing, Non-Toxic, Comfortable, Other (pulse oximetry 98 on room air) Pain Distress: None Mental Status: Positive for: Alert and Oriented X 3 - Systems Exam Head: Present: Atraumatic, Normocephalic Pupils: Present: PERRL Extroacular Muscles: Present: EOMI Conjunctiva: Present: Normal Ears: Present: NORMAL TM, Normal Canal. No: Erythema, TM Bulging Mouth: Present: Moist Mucous Membranes Pharnyx: No: ERYTHEMA, EXUDATE, TONSILS ENLARGED Neck: Present: Normal Range of Motion Respiratory/Chest: Present: Clear to Auscultation, Good Air Exchange. No: Respiratory Distress, Accessory Muscle Use, Wheezes, Decreased Breath Sounds, Rales, Retracting, Rhonchi, Tachypneic, Tender to Palpation Cardiovascular: Present: Regular Rate and Rhythm, Normal S1, S2. No: Murmurs Abdomen: No: Tenderness, Distention, Peritoneal Signs, Rebound, Guarding Upper Extremity: Present: Normal Inspection. No: Cyanosis, Edema Lower Extremity: Present: Normal Inspection. No: Edema Neurological: Present: GCS=15, CN II-XII Intact, Speech Normal, Motor Func Grossly Intact Skin: Present: Warm, Dry, Normal Color. No: Rashes Medical Decision Making ED Course and Treatment: 11/21/18 17:10 EKG shows normal sinus rhythm rate approximately [address] or T-wave changes. - RAD Interpretation Radiology Orders: 11/21/18 16:51 CHEST PORTABLE [RAD] Stat Chest one view shows cervical hardware. No infiltrate effusion or cardiomegaly. [employer]: ED Physician Disposition/Present on Arrival - Present on Arrival Any Indicators Present on Arrival: No History of DVT/PE: No History of Uncontrolled Diabetes: No Urinary Catheter: No History of Decub. Ulcer: No History Surgical Site Infection Following: None - Disposition Have Diagnosis and Disposition been Completed?: Yes Diagnosis: Upper respiratory infection, Bronchitis Disposition: HOME/ ROUTINE Disposition Time: 17:31 Patient Plan: Discharge Condition: GOOD Discharge Instructions (ExitCare): Acute Bronchitis, Cough, Runny Nose, and the Common Cold Additional Instructions: Symptomatic treatment. Tylenol or Advil as directed on bottle as needed. Keep appointment with PMD tomorrow. Follow up in ER as needed. Prescriptions: Amoxicillin [Amoxil 250 mg Cap] 250 mg PO TID #21 cap Benzonatate [Tessalon Perles] 100 mg PO Q8 #30 sgl Forms: [employer] (Kiswahili)
[2018-11-21 17:10] VITALS: PULSE 99; RESP 18
[2018-11-21 17:18] VITALS: BP 118/71
--- NOTE | 2018-11-21 17:44 | RAD ---
Date of service: 11/21/2018 HISTORY: cough COMPARISON: 11/06/2018 FINDINGS: LUNGS: No active pulmonary disease. PLEURA: No significant pleural effusion identified, no pneumothorax apparent. CARDIOVASCULAR: No radiographic findings to suggest acute or significant cardiovascular disease. Atherosclerotic calcifications identified primarily aortic arch. OSSEOUS STRUCTURES: No significant abnormalities. VISUALIZED UPPER ABDOMEN: Normal. OTHER FINDINGS: None. IMPRESSION: No active disease. No significant interval change compared to the prior examination(s).
[2018-11-21 17:59] VITALS: TEMP 98.6
--- NOTE | 2018-11-21 18:07 | CARD ---
APPROVED REPORT Date of service: 11/21/2018 EKG Measurement Heart [id number] <Conclusion> Normal sinus rhythm Left anterior fascicular block Poor R wave progression in Precordial leads Abnormal ECG
[2018-11-21 18:16] VITALS: O2SAT 98
== END 2018-11-21 18:15 | disposition home or self-care (01) ==
LOC: ED 16:34
DX: J40 Bronchitis, not specified as acute or chronic (principal); J06.9 Acute upper respiratory infection, unspecified; Z87.891 Personal history of nicotine dependence

== ENCOUNTER 2018-12-27 08:54 | Outpatient (CLI) | payer MEDICARE, OTHER | END 2018-12-27 08:55 | disposition home or self-care (01) | LOC: PAT 08:54 | DX: Z01.812 Encounter for preprocedural laboratory examination (principal) ==

== ENCOUNTER 2019-01-24 09:58 | Outpatient (CLI) | payer MEDICARE, OTHER | END 2019-01-24 09:59 | disposition home or self-care (01) | LOC: RAD 09:58 ==